=== PATIENT | male | born 1995 | race Caucasian/White ===

== ENCOUNTER 2019-10-07 08:22 | Emergency (ER) | payer BC, SELFPAY ==
[2019-10-07 08:36] VITALS: BP 129/83; PULSE 106; RESP 16; TEMP 38.2; O2SAT 98
--- NOTE | 2019-10-07 08:54 | ED.GENADULT ---
HPI - General Adult General Chief complaint: Upper Respiratory Infection Stated complaint: Pos flu Time Seen by Provider: 10/07/19 08:54 Source: patient and RN notes reviewed Mode of arrival: ambulatory Limitations: no limitations History of Present Illness HPI narrative: 23-year-old male with complaints of upper respiratory infection symptoms, fever, fatigue, body aches, cough, and intermittent headaches (not the worst of his life) for 1 day. Tylenol (unknown last dose and time says 2-3 tablets yesterday), Ibuprofen (unknown last dose says 2 tablets every 2HRS from 16:30 yesterday), and Nyquil with little relief. Dry cough with intermittent productive cough (phlegm). Rhinorrhea and nasal congestion. No exacerbating factors. High fevers, highest 105F, orally with intermittent chills. Nausea without vomiting and abdominal pain. Tolerating p.o. fluids. Denies chest pain, dyspnea, coughing up blood, difficulty swallowing, jaw pain, dental pain, facial pain, foreign body sensation, and rash. Some parts of this dictation were generated by voice recognition software and may contain typographical and/or grammatical inaccuracies. Related Data Allergies Allergy/AdvReac Type Severity Reaction Status Date / Time No Known Allergies Allergy Verified 10/07/19 08:35 Review of Systems Review of Systems: Narrative: CONSTITUTIONAL: Complains of fever. Denies chills, sweats. EYES: Denies visual changes, redness, discharge. ENT: Complains of rhinorrhea, congestion, facial pressure and congestion. Denies sore throat, otalgia. CARDIOVASCULAR: Denies chest pain, palpitations, edema. RESPIRATORY: Denies dyspnea, wheezing. Complains of dry cough, intermittent productive cough. GASTROINTESTINAL: Denies abdominal pain, vomiting, diarrhea. Complains of nausea. GENITOURINARY: Denies dysuria, hematuria, abnormal discharge. SKIN: Denies rash or itching. MUSCULOSKELETAL: Denies acute back pain, joint pain. Complains of myalgia. NEUROLOGIC: Denies numbness or focal weakness. PSYCHIATRIC: Denies anxiety or depression. Complains of intermittent HARRIS. All systems reviewed & are unremarkable except as noted in HPI and below. [facility] Past Medical History Medical History (Updated 10/07/19 @ 09:16 by YOLANDA Christensen) No significant past medical history Surgical History Surgical History (Updated 10/07/19 @ 09:16 by YOLANDA Christensen) History of hand surgery Right hand Family History Family History (Updated 10/07/19 @ 09:16 by YOLANDA Christensen) Father Diabetes mellitus Grandparent Diabetes mellitus Social History Social History (Updated 10/07/19 @ 09:17 by YOLANDA Christensen) Smoking status: Former smoker Second hand tobacco smoke exposure: No Alcohol intake: current Alcohol use details: Occasional Substance use: current Substance use type: marijuana Living arrangements: with family Occupation/Education: occupation Gender identity (if verbalized by the patient): Male Comments At time of signature, agree with nurse past medical, surgical, social, and family history. There is no relevant family history pertinent to the presenting complaint. Exam Narrative: Exam Narrative: GENERAL: This is a well-nourished, well-developed patient, in no apparent distress. Speaks in full sentences and ambulates with steady gait without dyspnea. HEAD: normocephalic, atraumatic. EYES: PERRL. Sclera clear/white. Vision is grossly intact. EARS: External ears normal, auditory canals clear and without drainage, TMs normal without perforation. Hearing grossly intact. NOSE: External nose normal with no obvious nasal discharge, nares with moderate redness and enlarged turbinates, clear rhinorrhea. THROAT: Mucous membranes moist, posterior pharynx with PND, mild erythema, no exudate, and normal tonsils. No drainage, no concern for Peritonsillar abscess. No drooling, trismus, or neck swelling. NECK: Neck supple, non-t
== END 2019-10-07 09:10 | disposition home or self-care (01) ==
PROVIDERS: Emergency Provider Nurse Practitioner Family
DX: J10.1 Influenza due to other identified influenza virus with other respiratory manifestations (principal)
CPT/HCPCS: 87804; 99213; G0463

== ENCOUNTER 2024-04-01 17:56 | Emergency (ER) | payer OTHER, SELFPAY ==
[2024-04-01 18:07] VITALS: BP 123/71; PULSE 74; RESP 16; TEMP 36.7; O2SAT 100
[2024-04-01 18:09] VITALS: BP 123/71; PULSE 74; RESP 16; TEMP 36.7; O2SAT 100
--- NOTE | 2024-04-01 18:48 | ED.GENADULT ---
HPI - General Adult General Chief complaint: Unspecified Stated complaint: anxiety check Time Seen by Provider: 04/01/24 18:15 Source: patient Mode of arrival: ambulatory Limitations: no limitations History of Present Illness HPI narrative: 28 yo M presents requesting return to work note. On Mar 26 pt was feeling overwhelmed and stressed due to work. Has been stressed lately with a new boss. 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 Pulled over and had a friend drive him home in his work truck. Pt went to his Mom s house and talked it out with her and felt better. He was told to take the next day off to relax. When he tried to go back to work this week and he was told he needed a note that he was ok to return. Pt denies hx of anxiety and is not feeling anxious at this time. All systems reviewed and negative except as noted above. Related Data Home Medications Medication Instructions Recorded Confirmed loratadine 10 mg tablet (Claritin) 10 mg PO DAILY 04/01/24 04/01/24 Allergies Allergy/AdvReac Type Severity Reaction Status Date / Time No Known Allergies Allergy Verified 04/01/24 18:09 Review of Systems Review of Systems: CONSTITUTIONAL: Denies fever, chills, or sweats. EYES: Denies visual changes, redness, or discharge. ENT: Denies rhinorrhea, congestion, sore throat, or otalgia. CARDIOVASCULAR: Denies chest pain, palpitations, or edema. RESPIRATORY: Denies cough or dyspnea. GASTROINTESTINAL: Denies abdominal pain, nausea, vomiting, or diarrhea. GENITOURINARY: Denies dysuria or hematuria. SKIN: Denies rash or itching. MUSCULOSKELETAL: Denies back pain, joint pain, or myalgia. NEUROLOGIC: Denies headache, numbness, or weakness. PSYCHIATRIC: Reports anxiety/streess. deniesdepression. All other systems reviewed are negative, except as documented in HPI. [facility] Past Medical History Medical History (Updated 10/08/19 @ 00:01 by Jeremiah Montejo) No significant past medical history Surgical History Surgical History (Updated 10/07/19 @ 09:16 by YOLANDA Christensen) History of hand surgery Right hand Family History Family History (Updated 10/07/19 @ 09:16 by YOLANDA Christensen) Father Diabetes mellitus Grandparent Diabetes mellitus Social History Social History (Updated 10/07/19 @ 09:17 by YOLANDA Christensen) Smoking status: Former smoker Second hand tobacco smoke exposure: No Alcohol intake: current Alcohol use details: Occasional Substance use: current Substance use type: marijuana Living arrangements: with family Occupation/Education: occupation Gender identity (if verbalized by the patient): Male Comments At time of signature, agree with nursing past medical, surgical, social and family history. There is no relevant family history pertinent to the presenting complaint. Exam Narrative: GENERAL: This is a well-nourished, well-developed patient, in no apparent distress. HEAD: normocephalic, atraumatic. EYES: PERRL. Sclera clear/white. Vision is grossly intact. EARS: External ears normal NOSE: External nose normal NECK: Neck supple, non-tender without lymphadenopathy, masses or thyromegaly. CARDIOVASCULAR: Regular rate and rhythm without murmurs, gallops, or rubs. RESPIRATORY: Clear to auscultation. Breath sounds equal bilaterally. No wheezes, rales, or rhonchi. SKIN: warm, Dry, intact with no suspicious lesions or rash, good texture and turgor. NEURO: awake, alert, and oriented to person, place and time. There were no obvious focal neurologic abnormalities. EXTREMITIES: No joint tenderness, effusion, or edema noted. Course Course Level of Care: Express Care Visit Vital Signs Vital signs: Vital Signs Temperature 36.7 C 04/01/24 18:07 Pulse Rate 74 04/01/24 18:07 Respiratory Rate 16 04/01/24 18:07 Blood Pressure 123/71 04/01/24 18:07 Pulse Oximetry 100 04/01/24 18:07 Oxygen Delivery
== END 2024-04-01 18:31 | disposition home or self-care (01) ==
PROVIDERS: Emergency Provider Nurse Practitioner Family
DX: Z56.3 Stressful work schedule (principal); Z87.891 Personal history of nicotine dependence
CPT/HCPCS: 99211; G0463